=== PATIENT | female | born 1950 | race American Indian/Alaskan Native ===

== ENCOUNTER 2017-04-09 09:34 | Outpatient (CLI) | payer BC ==
--- NOTE | 2017-04-09 11:03 | XRay Report ---
XRAY BILATERAL KNEE FOUR VIEWS EACH: 04/09/17 09:34:00 CLINICAL: Bilateral knee pain. FINDINGS: Right: Mild osteopenia. Mild narrowing of the lateral joint space with small osteophytes. Minimal medial joint space narrowing. Mild patellofemoral joint osteoarthritis. Suspect a small joint effusion with mild distention of the suprapatella bursa. No fracture or dislocation. Normal soft tissues. Left: Mild osteopenia. No fracture or dislocation. The joint spaces are normal. No joint effusion.Normal soft tissues. IMPRESSION: Mild osteoarthritis of the right knee with greater involvement of the medial joint space and the patellofemoral joint. Suspect a small right knee joint effusion.Mild osteopenia but otherwise normal left knee.
== END 2017-04-09 09:35 | disposition home or self-care (01) ==
LOC: SPVIMAG 09:34
PROVIDERS: ATTEND Orthopaedic Surgery
DX: M17.11 Unilateral primary osteoarthritis, right knee (principal); M85.862 Other specified disorders of bone density and structure, left lower leg; M85.861 Other specified disorders of bone density and structure, right lower leg